=== PATIENT | female | born 1955 | race Caucasian/White ===

== ENCOUNTER 2018-09-15 16:33 | Inpatient (IN) | payer BC ==
[2018-09-15] MEDS ORDERED: Sodium Chloride 0.9% 10 ML Syringe FLUSH PRN (16:44)
[2018-09-15] MEDS ORDERED: Aspirin 81 MG Tab.Chew PO ONE (16:52)
[2018-09-15] MEDS ORDERED: Labetalol 20 MG/4 ML Syringe IVPUSH ONE (16:53)
[2018-09-15] MEDS ORDERED: Nitroglycerin 0.4 MG Tab.SL SL ONE (16:53)
[2018-09-15] MEDS ORDERED: Nitroglycerin 0.4 MG Tab.SL SL PRN (16:54)
--- NOTE | 2018-09-15 17:00 | EDM.PDOC ---
ED HPI GENERAL MEDICAL PROBLEM - General Chief Complaint: Chest Pain Stated Complaint: CHEST PAIN Time Seen by Provider: 09/15/18 16:47 Source of Information: Reports: Patient History Limitations: Reports: No Limitations - History of Present Illness INITIAL COMMENTS - FREE TEXT/NARRATIVE: Presents with substernal non-radiating chest pressure x 1 hour. Took Tums with some improvement. No prior h/o CAD or HTN. No FMHx of CAD. Patient states it feels like her BP is high. She does have a h/o GERD. Onset: Today Onset Date: 09/15/18 Duration: Hour(s): (1) Location: Reports: Chest Quality: Reports: Pressure Severity: Moderate Improves with: Reports: Other (Tums) Associated Symptoms: Denies: Nausea/Vomiting, Shortness of Breath Midsternal chest Pain Score (Numeric/FACES): 0 Right Hand Pain Score (Numeric/FACES): 0 - Related Data Allergies Allergy/AdvReac Type Severity Reaction Status Date / Time honeydew melons Allergy Anaphylactic Uncoded 09/15/18 23:31 Shock Home Meds: Home Meds Esomeprazole Magnesium [Nexium] 40 mg PO DAILY 09/15/18 [History] Ranitidine [Zantac] 150 mg PO BEDTIME 09/15/18 [History] Past Medical History Cardiovascular History: Denies: CAD, Hypertension Gastrointestinal History: Reports: GERD Oncologic (Cancer) History: Reports: Breast - Past Surgical History Female Surgical History: Reports: Mastectomy (25 years ago) Endocrine Surgical History: Reports: Thyroidectomy (Partial) Social & Family History - Tobacco Use Smoking Status *Q: Former Smoker Tobacco Use Within Last Twelve Months: No - Alcohol Use Alcohol Use History: Yes Alcohol Use Frequency: Socially - Recreational Drug Use Recreational Drug Use: No ED ROS GENERAL - Review of Systems Review Of Systems: ROS reveals no pertinent complaints other than HPI. ED EXAM, GENERAL - Physical Exam Exam: See Below Exam Limited By: No Limitations General Appearance: Alert, WD/WN, No Apparent Distress Ears: Normal External Exam Nose: Normal Inspection Throat/Mouth: No Airway Compromise Head: Atraumatic, Normocephalic Neck: Supple Respiratory/Chest: No Respiratory Distress, Lungs Clear, Normal Breath Sounds Cardiovascular: Regular Rate, Rhythm, No Edema, No Murmur GI/Abdominal: Non-Tender, No Distention Back Exam: Full Range of Motion Extremities: Normal Inspection, Normal Range of Motion, Non-Tender, No Pedal Edema Neurological: Alert, Normal Cognition, No Motor/Sensory Deficits Psychiatric: Normal Affect, Normal Mood Skin Exam: Warm, Dry, Intact EKG INTERPRETATION EKG Date: 09/15/18 Time: 16:46 Rhythm: NSR Rate (Beats/Min): 74 [place]: Normal P-Wave: Present QRS: Normal ST-T: Other (no ST elev or dep, T wave flattened in V2 + V3) QT: Normal Course - Vital Signs Last Recorded V/S: Last Vital Signs Temp 36.7 C 09/16/18 04:00 Pulse 70 09/16/18 04:00 Resp 17 09/16/18 04:00 BP 150/68 H 09/16/18 04:00 Pulse Ox 96 09/16/18 04:00 - Orders/Labs/Meds Orders: Active Orders 24 hr Category Date Time Status EKG Documentation Completion [RC] ASDIRECTED Care 09/15/18 16:42 Active EKG Documentation Completion [RC] ASDIRECTED Care 09/15/18 21:00 Active Ang Chest [CT] Stat Exams 09/15/18 18:44 Taken CXR [Chest 1V Frontal] [CR] Stat Exams 09/15/18 16:42 Taken THYROXINE (T4) FREE, DIRECT, S Stat Lab 09/15/18 17:45 Received Nitroglycerin [Nitrostat] Med 09/15/18 16:54 Active 0.4 mg SL Q5M PRN Sodium Chloride 0.9% [Saline Flush] Med 09/15/18 16:44 Active 10 ml FLUSH ASDIRECTED PRN Saline Lock Insert [OM.PC] Routine Oth 09/15/18 16:44 Ordered EKG 12 Lead [EK] Stat Ther 09/15/18 16:42 Ordered EKG 12 Lead [EK] Stat Ther 09/15/18 21:00 Ordered Medication Orders Enoxaparin Sodium (Lovenox) 130 mg SUBCUT Q12H [facility] Last Admin: 09/15/18 23:21 Dose: Not Given Admin: 09/15/18 23:15 Dose: 130 mg Nitroglycerin (Nitrostat) 0.4 mg SL Q5M PRN PRN Reason: Chest Pain Last Admin: 09/15/18 16:45 Dose: 0.4 mg Sodium Chloride (Saline Flush) 10 ml FLUSH ASDIRECTED PRN PRN Reason: Keep Vein Open Last Admin: 09/15/18 16:50 Dose: 10 ml Warfarin Sodium (Coumadin) 10 mg PO DAILY@1600 BOYD Last Admin: 09/15/18 23:54 Dose: Not Given Labs: Laboratory Tests 09/15/18 09/15/18 09/15/18 Range/Units 16:55 16:55 16:55 WBC 7.6 (4.5-12.0) X10-3/uL RBC 4.82 (3.23-5.20) x10(6)uL Hgb 13.8 (11.5-15.5) g/dL Hct 42.8 (30.0-51.3) % MCV 88.8 (80-96) fL MCH 28.7 (27.7-33.6) pg MCHC 32.3 (32.2-35.4) g/dL RDW 12.3 (11.5-15.5) % Plt Count 270 (125-369) X10(3)uL MPV 6.8 L (7.4-10.4) fL Neut % (Auto) 51.3 (46-82) % Lymph % (Auto) 40.9 H (13-37) % [place] % (Auto) 6.0 (4-12) % Eos % (Auto) 1 (1.0-5.0) % Baso % (Auto) 0 (0-2) % Neut # (Auto) 3.9 (1.6-8.3) # Lymph # (Auto) 3.1 (0.6-5.0) # [place] # (Auto) 0.5 (0.0-1.3) # Eos # (Auto) 0.1 (0.0-0.8) # Baso # (Auto) 0.0 (0.0-0.2) # PT 9.4 (8.7-11.1) INR 0.97 (0.89-1.13) APTT (24.4-33.2) SECONDS D-Dimer, Quantitative 2.07 H (0.0-0.59) mg/LFEU Sodium 141 (135-145) mmol/L Potassium 3.6 (3.5-5.3) mmol/L Chloride 103 (100-110) mmol/L Carbon Dioxide 27 (21-32) mmol/L BUN 12 (7-18) mg/dL Creatinine 1.0 (0.55-1.02) mg/dL Est Cr Clr Drug Dosing TNP Estimated GFR (MDRD) 56 L (>60) BUN/Creatinine Ratio 12.0 (9-20) Glucose 100 (80-116) mg/dL Calcium 9.0 (8.6-10.2) mg/dL Magnesium 2.0 (1.8-2.5) mg/dL Total Bilirubin 0.2 (0.1-1.3) mg/dL AST 16 (5-25) IU/L ALT 19 (12-36) U/L Alkaline Phosphatase 87 (56-112) IU/L Troponin I (<0.017-0.056) ng/mL Total Protein 7.3 (6.0-8.0) g/dL Albumin 3.9 (3.2-4.6) g/dL Globulin 3.4 g/dL Albumin/Globulin Ratio 1.2 TSH, Ultra Sensitive (0.36-3.74) IU/mL 09/15/18 09/15/18 09/15/18 Range/Units 16:55 16:55 21:05 WBC (4.5-12.0) X10-3/uL RBC (3.23-5.20) x10(6)uL Hgb (11.5-15.5) g/dL Hct (30.0-51.3) % MCV (80-96) fL MCH (27.7-33.6) pg MCHC (32.2-35.4) g/dL RDW (11.5-15.5) % Plt Count (125-369) X10(3)uL MPV (7.4-10.4) fL Neut % (Auto) (46-82) % Lymph % (Auto) (13-37) % [place] % (Auto) (4-12) % Eos % (Auto) (1.0-5.0) % Baso % (Auto) (0-2) % Neut # (Auto) (1.6-8.3) # Lymph # (Auto) (0.6-5.0) # [place] # (Auto) (0.0-1.3) # Eos # (Auto) (0.0-0.8) # Baso # (Auto) (0.0-0.2) # PT (8.7-11.1) INR (0.89-1.13) APTT 23.4 L (24.4-33.2) SECONDS D-Dimer, Quantitative (0.0-0.59) mg/LFEU Sodium (135-145) mmol/L Potassium (3.5-5.3) mmol/L Chloride (100-110) mmol/L Carbon Dioxide (21-32) mmol/L BUN (7-18) mg/dL Creatinine (0.55-1.02) mg/dL Est Cr Clr Drug Dosing Estimated GFR (MDRD) (>60) BUN/Creatinine Ratio (9-20) Glucose (80-116) mg/dL Calcium (8.6-10.2) mg/dL Magnesium (1.8-2.5) mg/dL Total Bilirubin (0.1-1.3) mg/dL AST (5-25) IU/L ALT (12-36) U/L Alkaline Phosphatase (56-112) IU/L Troponin I < 0.017 L < 0.017 L (<0.017-0.056) ng/mL Total Protein (6.0-8.0) g/dL Albumin (3.2-4.6) g/dL Globulin g/dL Albumin/Globulin Ratio TSH, Ultra Sensitive 3.79 H (0.36-3.74) IU/mL Meds: Medications Generic Name Dose Route Start Last Admin Trade Name Freq PRN Reason Stop Dose Admin Enoxaparin Sodium 130 mg 09/15/18 22:00 09/15/18 23:21 Lovenox SUBCUT Not Given Q12H BOYD Nitroglycerin 0.4 mg 09/15/18 16:54 09/15/18 16:45 Nitrostat SL 0.4 mg Q5M PRN Administration Chest Pain Sodium Chloride 10 ml 09/15/18 16:44 09/15/18 16:50 Saline Flush FLUSH 10 ml ASDIRECTED PRN Administration Keep Vein Open Warfarin Sodium 10 mg 09/15/18 23:00 09/15/18 23:54 Coumadin PO Not Given DAILY@1600 BOYD Discontinued Medications Generic Name Dose Route Start Last Admin Trade Name Freq PRN Reason Stop Dose Admin Aspirin 324 mg 09/15/18 16:52 09/15/18 16:55 Aspirin PO 09/15/18 16:53 324 mg ONETIME ONE Administration Enoxaparin Sodium Confirm 09/15/18 23:11 09/15/18 23:18 Lovenox Administered 09/15/18 23:12 Not Given Dose 100 mg .ROUTE .STK-MED ONE Enoxaparin Sodium Confirm 09/15/18 23:11 09/15/18 23:18 Lovenox Administered 09/15/18 23:12 Not Given Dose 30 mg .ROUTE .STK-MED ONE Iopamidol 100 ml 09/15/18 18:33 09/15/18 18:42 Isovue-370 (76%) IV 09/15/18 18:34 85 ml ONETIME ONE Administration Labetalol HCl 10 mg 09/15/18 16:53 09/15/18 17:28 Normodyne IVPUSH 09/15/18 16:54 10 mg ONETIME ONE Administration Protocol Nitroglycerin 0.4 mg 09/15/18 16:53 Nitrostat SL 09/15/18 16:54 ONETIME ONE Warfarin Sodium Confirm 09/15/18 23:13 09/15/18 23:17 Coumadin Administered 09/15/18 23:14 10 mg Dose Administration 10 mg .ROUTE .STK-MED ONE - Re-Assessments/Exams Free Text/Narrative Re-Assessment/Exam: 09/15/18 18:10 Chest pain resolved after NTG SL x 1. BP 150/89 after Labetalol 10mg IV. 09/15/18 19:00 Patient care transferred to Dr. Manuel pending CTA chest and repeat Trop/EKG @ 2100. Departure - Departure Time of Disposition: 19:00 Disposition: Still A Patient 30 Clinical Impression: Chest pain Qualifiers: Chest pain type: unspecified Qualified Code(s): R07.9 - Chest pain, unspecified - My Orders Last 24 Hours: My Active Orders 09/15/18 16:42 EKG Documentation Completion [RC] ASDIRECTED CXR [Chest 1V Frontal] [CR] Stat EKG 12 Lead [EK] Stat 09/15/18 16:44 Sodium Chloride 0.9% [Saline Flush] 10 ml FLUSH ASDIRECTED PRN Saline Lock Insert [OM.PC] Routine 09/15/18 16:54 Nitroglycerin [Nitrostat] 0.4 mg SL Q5M PRN 09/15/18 17:45 THYROXINE (T4) FREE, DIRECT, S Stat 09/15/18 18:44 Ang Chest [CT] Stat 09/15/18 21:00 EKG Documentation Completion [RC] ASDIRECTED EKG 12 Lead [EK] Stat - Assessment/Plan Last 24 Hours: My Active Orders 09/15/18 16:42 EKG Documentation Completion [RC] ASDIRECTED CXR [Chest 1V Frontal] [CR] Stat EKG 12 Lead [EK] Stat 09/15/18 16:44 Sodium Chloride 0.9% [Saline Flush] 10 ml FLUSH ASDIRECTED PRN Saline Lock Insert [OM.PC] Routine 09/15/18 16:54 Nitroglycerin [Nitrostat] 0.4 mg SL Q5M PRN 09/15/18 17:45 THYROXINE (T4) FREE, DIRECT, S Stat 09/15/18 18:44 Ang Chest [CT] Stat 09/15/18 21:00 EKG Documentation Completion [RC] ASDIRECTED EKG 12 Lead [EK] Stat
[2018-09-15] MEDS ORDERED: Iopamidol 755 Mg/ML 100 ML Bottle IV ONE (18:33)
--- NOTE | 2018-09-15 22:20 | PCM.HP ---
H&P History of Present Illness - General Date of Service: 09/15/18 Admit Problem/Dx: Admission Diagnosis/Problem Admission Diagnosis/Problem Pulmonary embolism Source of Information: Patient History Limitations: Reports: No Limitations - History of Present Illness Initial Comments - Free Text/Narative: 62 yo female with retrosternal chest pain,short duration ,moderate ,with no radiation. Associated with high BP. Previously healthy,but has been on a prolonged travel by road over the last 1 week. No fever. Right Hand Pain Score (Numeric/FACES): 0 Midsternal chest Pain Score (Numeric/FACES): 0 - Related Data Allergies/Adverse Reactions: Allergies Allergy/AdvReac Type Severity Reaction Status Date / Time No Known Allergies Allergy Verified 09/15/18 16:57 Home Medications: Home Meds Esomeprazole Magnesium [Nexium] 40 mg PO DAILY 09/15/18 [History] Ranitidine [Zantac] 150 mg PO BEDTIME 09/15/18 [History] Past Medical History Cardiovascular History: Denies: CAD, Hypertension Gastrointestinal History: Reports: GERD Genitourinary History: Reports: UTI, Recurrent [employer] History: Reports: Other OB/BYN History: Hematologic History: Reports: None Oncologic (Cancer) History: Reports: Breast - Infectious Disease History Infectious Disease History: Reports: Chicken Pox, Measles, MRSA, Other (See Below) Other Infectious Disease History: MRSA on sore on abdomen - Past Surgical History Female Surgical History: Reports: Mastectomy (25 years ago) Endocrine Surgical History: Reports: Thyroidectomy (Partial) Social & Family History - Family History Family Medical History: Noncontributory - Tobacco Use Smoking Status *Q: Former Smoker Years of Tobacco use: 20 Used Tobacco, but Quit: Yes Month/Year Tobacco Last Used: jun - Caffeine Use Caffeine Use: Reports: Coffee - Alcohol Use Days Per Week of Alcohol Use: 3 Number of Drinks Per Day: 2 Total Drinks Per Week: 6 - Recreational Drug Use Recreational Drug Use: No H&P Review of Systems - Review of Systems: Review Of Systems: ROS reveals no pertinent complaints other than HPI. Exam - Exam Exam: See Below - Vital Signs Vital Signs: Last Vital Signs Temp 97.7 F 09/15/18 16:35 Pulse 71 09/15/18 19:00 Resp 16 09/15/18 19:00 BP 147/82 H 09/15/18 19:00 Pulse Ox 100 09/15/18 19:00 Weight: 88.451 kg - Exam General: Alert, Oriented, 4 HEENT: PERRLA, Hearing Intact, Mucosa Moist & [address], Nares Patent, Normal Nasal Septum, Posterior Pharynx Clear, Conjunctiva Clear, EOMI, EACs Clear, TMs Clear Neck: Supple, Trachea Midline, 2 Lungs: Clear to Auscultation, Normal Respiratory Effort Cardiovascular: Regular Rate, Regular Rhythm GI/Abdominal Exam: Normal Bowel Sounds, Soft, Non-Tender, No Organomegaly, No Distention, No Abnormal Bruit, No Mass, Pelvis Stable (Female) Exam: Deferred Rectal (Female) Exam: Deferred Back Exam: Normal Inspection, Full Range of Motion, NT Extremities: Normal Inspection, Normal Range of Motion, Non-Tender, No Pedal Edema, Normal Capillary Refill Skin: Warm, Dry, Intact Neurological: Cranial Nerves Intact, Reflexes Equal Bilateral Neuro Extensive - Mental Status: Alert, Oriented x3, Normal Mood/Affect, Normal Cognition Neuro Extensive - Motor, Sensory, Reflexes: CN II-XII Intact, Normal Gait, Normal Reflexes Psychiatric: Alert, Normal Affect, Normal Mood - Patient Data Lab Results Last 24 hrs: Laboratory Results - last 24 hr 09/15/18 09/15/18 09/15/18 Range/Units 16:55 16:55 16:55 WBC 7.6 (4.5-12.0) X10-3/uL RBC 4.82 (3.23-5.20) x10(6)uL Hgb 13.8 (11.5-15.5) g/dL Hct 42.8 (30.0-51.3) % MCV 88.8 (80-96) fL MCH 28.7 (27.7-33.6) pg MCHC 32.3 (32.2-35.4) g/dL RDW 12.3 (11.5-15.5) % Plt Count 270 (125-369) X10(3)uL MPV 6.8 L (7.4-10.4) fL Neut % (Auto) 51.3 (46-82) % Lymph % (Auto) 40.9 H (13-37) % [place] % (Auto) 6.0 (4-12) % Eos % (Auto) 1 (1.0-5.0) % Baso % (Auto) 0 (0-2) % Neut # (Auto) 3.9 (1.6-8.3) # Lymph # (Auto) 3.1 (0.6-5.0) # [place] # (Auto) 0.5 (0.0-1.3) # Eos # (Auto) 0.1 (0.0-0.8) # Baso # (Auto) 0.0 (0.0-0.2) # PT 9.4 (8.7-11.1) INR 0.97 (0.89-1.13) APTT (24.4-33.2) SECONDS D-Dimer, Quantitative 2.07 H (0.0-0.59) mg/LFEU Sodium 141 (135-145) mmol/L Potassium 3.6 (3.5-5.3) mmol/L Chloride 103 (100-110) mmol/L Carbon Dioxide 27 (21-32) mmol/L BUN 12 (7-18) mg/dL Creatinine 1.0 (0.55-1.02) mg/dL Est Cr Clr Drug Dosing TNP Estimated GFR (MDRD) 56 L (>60) BUN/Creatinine Ratio 12.0 (9-20) Glucose 100 (80-116) mg/dL Calcium 9.0 (8.6-10.2) mg/dL Magnesium 2.0 (1.8-2.5) mg/dL Total Bilirubin 0.2 (0.1-1.3) mg/dL AST 16 (5-25) IU/L ALT 19 (12-36) U/L Alkaline Phosphatase 87 (56-112) IU/L Troponin I (<0.017-0.056) ng/mL Total Protein 7.3 (6.0-8.0) g/dL Albumin 3.9 (3.2-4.6) g/dL Globulin 3.4 g/dL Albumin/Globulin Ratio 1.2 TSH, Ultra Sensitive (0.36-3.74) IU/mL 09/15/18 09/15/18 09/15/18 Range/Units 16:55 16:55 21:05 WBC (4.5-12.0) X10-3/uL RBC (3.23-5.20) x10(6)uL Hgb (11.5-15.5) g/dL Hct (30.0-51.3) % MCV (80-96) fL MCH (27.7-33.6) pg MCHC (32.2-35.4) g/dL RDW (11.5-15.5) % Plt Count (125-369) X10(3)uL MPV (7.4-10.4) fL Neut % (Auto) (46-82) % Lymph % (Auto) (13-37) % [place] % (Auto) (4-12) % Eos % (Auto) (1.0-5.0) % Baso % (Auto) (0-2) % Neut # (Auto) (1.6-8.3) # Lymph # (Auto) (0.6-5.0) # [place] # (Auto) (0.0-1.3) # Eos # (Auto) (0.0-0.8) # Baso # (Auto) (0.0-0.2) # PT (8.7-11.1) INR (0.89-1.13) APTT 23.4 L (24.4-33.2) SECONDS D-Dimer, Quantitative (0.0-0.59) mg/LFEU Sodium (135-145) mmol/L Potassium (3.5-5.3) mmol/L Chloride (100-110) mmol/L Carbon Dioxide (21-32) mmol/L BUN (7-18) mg/dL Creatinine (0.55-1.02) mg/dL Est Cr Clr Drug Dosing Estimated GFR (MDRD) (>60) BUN/Creatinine Ratio (9-20) Glucose (80-116) mg/dL Calcium (8.6-10.2) mg/dL Magnesium (1.8-2.5) mg/dL Total Bilirubin (0.1-1.3) mg/dL AST (5-25) IU/L ALT (12-36) U/L Alkaline Phosphatase (56-112) IU/L Troponin I < 0.017 L < 0.017 L (<0.017-0.056) ng/mL Total Protein (6.0-8.0) g/dL Albumin (3.2-4.6) g/dL Globulin g/dL Albumin/Globulin Ratio TSH, Ultra Sensitive 3.79 H (0.36-3.74) IU/mL Result Diagrams: 09/15/18 16:55 09/15/18 16:55 - Problem List (1) Pulmonary emboli SNOMED Code(s): 35581984 ICD Code: I26.99 - OTHER PULMONARY EMBOLISM WITHOUT ACUTE COR PULMONALE Status: Acute Current Visit: Yes Qualifiers: Pulmonary embolism type: unspecified Chronicity: acute Acute cor pulmonale presence: without acute cor pulmonale Qualified Code(s): I26.99 - Other pulmonary embolism without acute cor pulmonale (2) GERD (gastroesophageal reflux disease) SNOMED Code(s): 496824359 ICD Code: K21.9 - GASTRO-ESOPHAGEAL REFLUX DISEASE WITHOUT ESOPHAGITIS Status: Acute Current Visit: Yes Qualifiers: Esophagitis presence: without esophagitis Qualified Code(s): K21.9 - Gastro -esophageal reflux disease without esophagitis Problem List Initiated/Reviewed/Updated: Yes Orders Last 24hrs: Active Orders 24 hr Category Date Time Status Patient Status Manage Transfer [TRANSFER] Routine ADT 09/15/18 22:08 Active Patient Status [ADT] Routine ADT 09/15/18 21:58 Active Cardiac Monitoring [RC] CONTINUOUS Care 09/15/18 22:06 Active EKG Documentation Completion [RC] ASDIRECTED Care 09/15/18 16:42 Active EKG Documentation Completion [RC] ASDIRECTED Care 09/15/18 21:00 Active Oxygen Therapy [RC] PRN Care 09/15/18 21:58 Active Up ad [place] [RC] ASDIRECTED Care 09/15/18 21:58 Active VTE/DVT Education [RC] Per Unit Routine Care 09/15/18 21:58 Active Vital Signs [RC] Q4H Care 09/15/18 21:58 Active Regular Diet [DIET] Diet 09/15/18 Breakfast Ordered Ang Chest [CT] Stat Exams 09/15/18 18:44 Taken CXR [Chest 1V Frontal] [CR] Stat Exams 09/15/18 16:42 Taken CBC WITH AUTO DIFF [HEME] AM Lab 09/16/18 05:11 Ordered COMPREHENSIVE METABOLIC PN,CMP [CHEM] AM Lab 09/16/18 05:11 Ordered INR,PT,PROTHROMBIN TIME [COAG] DAILY Lab 09/16/18 22:00 Ordered INR,PT,PROTHROMBIN TIME [COAG] DAILY Lab 09/17/18 22:00 Ordered THYROXINE (T4) FREE, DIRECT, S Stat Lab 09/15/18 17:45 Received TROPONIN I [CHEM] AM Lab 09/16/18 05:11 Ordered Enoxaparin [Lovenox] Med 09/15/18 22:00 Active 130 mg SUBCUT Q12H Nitroglycerin [Nitrostat] Med 09/15/18 16:54 Active 0.4 mg SL Q5M PRN Sodium Chloride 0.9% [Saline Flush] Med 09/15/18 16:44 Active 10 ml FLUSH ASDIRECTED PRN Saline Lock Insert [OM.PC] Routine Oth 09/15/18 16:44 Ordered Resuscitation Status Routine Resus Stat 09/15/18 21:58 Ordered EKG 12 Lead [EK] Stat Ther 09/15/18 16:42 Ordered EKG 12 Lead [EK] Stat Ther 09/15/18 21:00 Ordered Medication Orders Enoxaparin Sodium (Lovenox) 130 mg SUBCUT Q12H BOYD Nitroglycerin (Nitrostat) 0.4 mg SL Q5M PRN PRN Reason: Chest Pain Last Admin: 09/15/18 16:45 Dose: 0.4 mg Sodium Chloride (Saline Flush) 10 ml FLUSH ASDIRECTED PRN PRN Reason: Keep Vein Open Last Admin: 09/15/18 16:50 Dose: 10 ml Assessment/Plan Comment:: Admit for heparin and Monitoring. I chose Lovenox.
[2018-09-15] MEDS ORDERED: Enoxaparin 30 MG/0.3 ML Syringe ONE (23:11)
[2018-09-15] MEDS ORDERED: Enoxaparin 100 MG/1 ML Syringe ONE (23:11)
[2018-09-15] MEDS ORDERED: Warfarin 5 MG Tab ONE (23:13)
[2018-09-15] MEDS: Enoxaparin 120 MG/0.8 ML Syringe SUBCUT SCH ×2 (23:15→23:21)
[2018-09-15] MEDS: Warfarin 10 MG Tab PO SCH (23:54)
--- NOTE | 2018-09-16 07:49 | PCM.PN ---
- General Info Date of Service: 09/16/18 Subjective Update: No chest pain,or leg swelling - Review of Systems HEENT: Reports: No Symptoms Pulmonary: Reports: No Symptoms Cardiovascular: Reports: No Symptoms Gastrointestinal: Reports: No Symptoms - Patient Data Vitals - Most Recent: Last Vital Signs Temp 98.0 F 09/16/18 04:00 Pulse 70 09/16/18 04:00 Resp 17 09/16/18 04:00 BP 150/68 H 09/16/18 04:00 Pulse Ox 96 09/16/18 04:00 Weight - Most Recent: 91.58 kg Lab Results Last 24 Hours: Laboratory Results - last 24 hr 09/15/18 09/15/18 09/15/18 Range/Units 16:55 16:55 16:55 WBC 7.6 (4.5-12.0) X10-3/uL RBC 4.82 (3.23-5.20) x10(6)uL Hgb 13.8 (11.5-15.5) g/dL Hct 42.8 (30.0-51.3) % MCV 88.8 (80-96) fL MCH 28.7 (27.7-33.6) pg MCHC 32.3 (32.2-35.4) g/dL RDW 12.3 (11.5-15.5) % Plt Count 270 (125-369) X10(3)uL MPV 6.8 L (7.4-10.4) fL Neut % (Auto) 51.3 (46-82) % Lymph % (Auto) 40.9 H (13-37) % [place] % (Auto) 6.0 (4-12) % Eos % (Auto) 1 (1.0-5.0) % Baso % (Auto) 0 (0-2) % Neut # (Auto) 3.9 (1.6-8.3) # Lymph # (Auto) 3.1 (0.6-5.0) # [place] # (Auto) 0.5 (0.0-1.3) # Eos # (Auto) 0.1 (0.0-0.8) # Baso # (Auto) 0.0 (0.0-0.2) # PT 9.4 (8.7-11.1) INR 0.97 (0.89-1.13) APTT (24.4-33.2) SECONDS D-Dimer, Quantitative 2.07 H (0.0-0.59) mg/LFEU Sodium 141 (135-145) mmol/L Potassium 3.6 (3.5-5.3) mmol/L Chloride 103 (100-110) mmol/L Carbon Dioxide 27 (21-32) mmol/L BUN 12 (7-18) mg/dL Creatinine 1.0 (0.55-1.02) mg/dL Est Cr Clr Drug Dosing TNP Estimated GFR (MDRD) 56 L (>60) BUN/Creatinine Ratio 12.0 (9-20) Glucose 100 (80-116) mg/dL Calcium 9.0 (8.6-10.2) mg/dL Magnesium 2.0 (1.8-2.5) mg/dL Total Bilirubin 0.2 (0.1-1.3) mg/dL AST 16 (5-25) IU/L ALT 19 (12-36) U/L Alkaline Phosphatase 87 (56-112) IU/L Troponin I (<0.017-0.056) ng/mL Total Protein 7.3 (6.0-8.0) g/dL Albumin 3.9 (3.2-4.6) g/dL Globulin 3.4 g/dL Albumin/Globulin Ratio 1.2 TSH, Ultra Sensitive (0.36-3.74) IU/mL 09/15/18 09/15/18 09/15/18 Range/Units 16:55 16:55 21:05 WBC (4.5-12.0) X10-3/uL RBC (3.23-5.20) x10(6)uL Hgb (11.5-15.5) g/dL Hct (30.0-51.3) % MCV (80-96) fL MCH (27.7-33.6) pg MCHC (32.2-35.4) g/dL RDW (11.5-15.5) % Plt Count (125-369) X10(3)uL MPV (7.4-10.4) fL Neut % (Auto) (46-82) % Lymph % (Auto) (13-37) % [place] % (Auto) (4-12) % Eos % (Auto) (1.0-5.0) % Baso % (Auto) (0-2) % Neut # (Auto) (1.6-8.3) # Lymph # (Auto) (0.6-5.0) # [place] # (Auto) (0.0-1.3) # Eos # (Auto) (0.0-0.8) # Baso # (Auto) (0.0-0.2) # PT (8.7-11.1) INR (0.89-1.13) APTT 23.4 L (24.4-33.2) SECONDS D-Dimer, Quantitative (0.0-0.59) mg/LFEU Sodium (135-145) mmol/L Potassium (3.5-5.3) mmol/L Chloride (100-110) mmol/L Carbon Dioxide (21-32) mmol/L BUN (7-18) mg/dL Creatinine (0.55-1.02) mg/dL Est Cr Clr Drug Dosing Estimated GFR (MDRD) (>60) BUN/Creatinine Ratio (9-20) Glucose (80-116) mg/dL Calcium (8.6-10.2) mg/dL Magnesium (1.8-2.5) mg/dL Total Bilirubin (0.1-1.3) mg/dL AST (5-25) IU/L ALT (12-36) U/L Alkaline Phosphatase (56-112) IU/L Troponin I < 0.017 L < 0.017 L (<0.017-0.056) ng/mL Total Protein (6.0-8.0) g/dL Albumin (3.2-4.6) g/dL Globulin g/dL Albumin/Globulin Ratio TSH, Ultra Sensitive 3.79 H (0.36-3.74) IU/mL 09/16/18 09/16/18 09/16/18 Range/Units 06:10 06:10 06:10 WBC 7.0 (4.5-12.0) X10-3/uL RBC 4.53 (3.23-5.20) x10(6)uL Hgb 13.5 (11.5-15.5) g/dL Hct 40.2 (30.0-51.3) % MCV 88.6 (80-96) fL MCH 29.7 (27.7-33.6) pg MCHC 33.5 (32.2-35.4) g/dL RDW 12.8 (11.5-15.5) % Plt Count 256 (125-369) X10(3)uL MPV 6.9 L (7.4-10.4) fL Neut % (Auto) 46.6 (46-82) % Lymph % (Auto) 46.0 H (13-37) % [place] % (Auto) 5.2 (4-12) % Eos % (Auto) 2 (1.0-5.0) % Baso % (Auto) 1 (0-2) % Neut # (Auto) 3.3 (1.6-8.3) # Lymph # (Auto) 3.2 (0.6-5.0) # [place] # (Auto) 0.4 (0.0-1.3) # Eos # (Auto) 0.1 (0.0-0.8) # Baso # (Auto) 0.0 (0.0-0.2) # PT (8.7-11.1) INR (0.89-1.13) APTT (24.4-33.2) SECONDS D-Dimer, Quantitative (0.0-0.59) mg/LFEU Sodium 142 (135-145) mmol/L Potassium 4.1 (3.5-5.3) mmol/L Chloride 106 (100-110) mmol/L Carbon Dioxide 29 (21-32) mmol/L BUN 11 (7-18) mg/dL Creatinine 1.0 (0.55-1.02) mg/dL Est Cr Clr Drug Dosing 60.96 Estimated GFR (MDRD) 56 L (>60) BUN/Creatinine Ratio 11.0 (9-20) Glucose 94 (80-116) mg/dL Calcium 8.7 (8.6-10.2) mg/dL Magnesium (1.8-2.5) mg/dL Total Bilirubin 0.3 (0.1-1.3) mg/dL AST 19 D (5-25) IU/L ALT 18 (12-36) U/L Alkaline Phosphatase 80 (56-112) IU/L Troponin I < 0.017 L (<0.017-0.056) ng/mL Total Protein 6.7 (6.0-8.0) g/dL Albumin 3.5 (3.2-4.6) g/dL Globulin 3.2 g/dL Albumin/Globulin Ratio 1.1 TSH, Ultra Sensitive (0.36-3.74) IU/mL 09/16/18 Range/Units 06:10 WBC (4.5-12.0) X10-3/uL RBC (3.23-5.20) x10(6)uL Hgb (11.5-15.5) g/dL Hct (30.0-51.3) % MCV (80-96) fL MCH (27.7-33.6) pg MCHC (32.2-35.4) g/dL RDW (11.5-15.5) % Plt Count (125-369) X10(3)uL MPV (7.4-10.4) fL Neut % (Auto) (46-82) % Lymph % (Auto) (13-37) % [place] % (Auto) (4-12) % Eos % (Auto) (1.0-5.0) % Baso % (Auto) (0-2) % Neut # (Auto) (1.6-8.3) # Lymph # (Auto) (0.6-5.0) # [place] # (Auto) (0.0-1.3) # Eos # (Auto) (0.0-0.8) # Baso # (Auto) (0.0-0.2) # PT 10.0 (8.7-11.1) INR 1.03 (0.89-1.13) APTT (24.4-33.2) SECONDS D-Dimer, Quantitative (0.0-0.59) mg/LFEU Sodium (135-145) mmol/L Potassium (3.5-5.3) mmol/L Chloride (100-110) mmol/L Carbon Dioxide (21-32) mmol/L BUN (7-18) mg/dL Creatinine (0.55-1.02) mg/dL Est Cr Clr Drug Dosing Estimated GFR (MDRD) (>60) BUN/Creatinine Ratio (9-20) Glucose (80-116) mg/dL Calcium (8.6-10.2) mg/dL Magnesium (1.8-2.5) mg/dL Total Bilirubin (0.1-1.3) mg/dL AST (5-25) IU/L ALT (12-36) U/L Alkaline Phosphatase (56-112) IU/L Troponin I (<0.017-0.056) ng/mL Total Protein (6.0-8.0) g/dL Albumin (3.2-4.6) g/dL Globulin g/dL Albumin/Globulin Ratio TSH, Ultra Sensitive (0.36-3.74) IU/mL Med Orders - Current: Current Medications Enoxaparin Sodium (Lovenox) 130 mg SUBCUT Q12H [facility] Last Admin: 09/15/18 23:21 Dose: Not Given Nitroglycerin (Nitrostat) 0.4 mg SL Q5M PRN PRN Reason: Chest Pain Last Admin: 09/15/18 16:45 Dose: 0.4 mg Sodium Chloride (Saline Flush) 10 ml FLUSH ASDIRECTED PRN PRN Reason: Keep Vein Open Last Admin: 09/15/18 16:50 Dose: 10 ml Warfarin Sodium (Coumadin) 10 mg PO DAILY@1600 [facility] Last Admin: 09/15/18 23:54 Dose: Not Given Discontinued Medications Aspirin (Aspirin) 324 mg PO ONETIME ONE Stop: 09/15/18 16:53 Last Admin: 09/15/18 16:55 Dose: 324 mg Enoxaparin Sodium (Lovenox) Confirm Administered Dose 100 mg .ROUTE .STK-MED ONE Stop: 09/15/18 23:12 Last Admin: 09/15/18 23:18 Dose: Not Given Enoxaparin Sodium (Lovenox) Confirm Administered Dose 30 mg .ROUTE .STK-MED ONE Stop: 09/15/18 23:12 Last Admin: 09/15/18 23:18 Dose: Not Given Iopamidol (Isovue-370 (76%)) 100 ml IV ONETIME ONE Stop: 09/15/18 18:34 Last Admin: 09/15/18 18:42 Dose: 85 ml Labetalol HCl (Normodyne) 10 mg IVPUSH ONETIME ONE; Protocol Stop: 09/15/18 16:54 Last Admin: 09/15/18 17:28 Dose: 10 mg Nitroglycerin (Nitrostat) 0.4 mg SL ONETIME ONE Stop: 09/15/18 16:54 Warfarin Sodium (Coumadin) Confirm Administered Dose 10 mg .ROUTE .STK-MED ONE Stop: 09/15/18 23:14 Last Admin: 09/15/18 23:17 Dose: 10 mg - Exam General: Alert, Oriented HEENT: Pupils Equal Neck: Supple Lungs: Clear to Auscultation Cardiovascular: Regular Rate Extremities: No: Pedal Edema, Hiren's Sign, Leg Pain - Problem List & Annotations (1) Pulmonary emboli SNOMED Code(s): 01224412 Code(s): I26.99 - OTHER PULMONARY EMBOLISM WITHOUT ACUTE COR PULMONALE Status: Acute Current Visit: Yes Qualifiers: Pulmonary embolism type: unspecified Chronicity: acute Acute cor pulmonale presence: without acute cor pulmonale Qualified Code(s): I26.99 - Other pulmonary embolism without acute cor pulmonale (2) GERD (gastroesophageal reflux disease) SNOMED Code(s): 915128170 Code(s): K21.9 - GASTRO-ESOPHAGEAL REFLUX DISEASE WITHOUT ESOPHAGITIS Status: Acute Current Visit: Yes Qualifiers: Esophagitis presence: without esophagitis Qualified Code(s): K21.9 - Gastro -esophageal reflux disease without esophagitis - Problem List Review Problem List Initiated/Reviewed/Updated: Yes - My Orders Last 24 Hours: My Active Orders 09/15/18 21:58 Patient Status [ADT] Routine Oxygen Therapy [RC] PRN Up ad [place] [RC] ASDIRECTED VTE/DVT Education [RC] Per Unit Routine Vital Signs [RC] Q4H Resuscitation Status Routine 09/15/18 22:00 Enoxaparin [Lovenox] 130 mg SUBCUT Q12H 09/15/18 22:06 Cardiac Monitoring [RC] CONTINUOUS 09/15/18 23:00 Warfarin [Coumadin] 10 mg PO DAILY@1600 09/17/18 22:00 INR,PT,PROTHROMBIN TIME [COAG] DAILY - Plan Plan:: Continue LMWH.I did talk with patient about self injection,but she is not willing -will probably weight till INR is therapeutic before discharge.
[2018-09-16] MEDS ORDERED: Enoxaparin 30 MG/0.3 ML Syringe ONE (09:45)
[2018-09-16] MEDS ORDERED: Enoxaparin 100 MG/1 ML Syringe ONE (09:45)
[2018-09-16] MEDS: Enoxaparin 120 MG/0.8 ML Syringe SUBCUT SCH ×2 (10:15→22:09)
[2018-09-16] MEDS ORDERED: Warfarin 5 MG Tab ONE (15:57)
[2018-09-16] MEDS ORDERED: Warfarin 10 MG Tab PO SCH (16:00)
[2018-09-16] MEDS: Warfarin 10 MG Tab PO SCH (19:04)
--- NOTE | 2018-09-17 08:51 | PCM.PN ---
- General Info Date of Service: 09/17/18 Subjective Update: No chest pain,or leg swelling Functional Status: Reports: Pain Controlled - Review of Systems General: Reports: No Symptoms HEENT: Reports: No Symptoms Pulmonary: Reports: No Symptoms Cardiovascular: Reports: No Symptoms - Patient Data Vitals - Most Recent: Last Vital Signs Temp 97.8 F 09/17/18 04:34 Pulse 70 09/16/18 04:00 Resp 18 09/17/18 04:34 BP 121/78 09/17/18 04:34 Pulse Ox 97 09/17/18 04:34 Weight - Most Recent: 91.58 kg Lab Results Last 24 Hours: Laboratory Results - last 24 hr 09/17/18 Range/Units 06:30 PT 16.4 H (8.7-11.1) INR 1.70 H (0.89-1.13) Med Orders - Current: Current Medications Enoxaparin Sodium (Lovenox) 130 mg SUBCUT Q12H [facility] Last Admin: 09/16/18 22:09 Dose: 130 mg Nitroglycerin (Nitrostat) 0.4 mg SL Q5M PRN PRN Reason: Chest Pain Last Admin: 09/15/18 16:45 Dose: 0.4 mg Sodium Chloride (Saline Flush) 10 ml FLUSH ASDIRECTED PRN PRN Reason: Keep Vein Open Last Admin: 09/15/18 16:50 Dose: 10 ml Warfarin Sodium (Coumadin) 5 mg PO DAILY@1600 [facility] Discontinued Medications Aspirin (Aspirin) 324 mg PO ONETIME ONE Stop: 09/15/18 16:53 Last Admin: 09/15/18 16:55 Dose: 324 mg Enoxaparin Sodium (Lovenox) Confirm Administered Dose 100 mg .ROUTE .STK-MED ONE Stop: 09/15/18 23:12 Last Admin: 09/15/18 23:18 Dose: Not Given Enoxaparin Sodium (Lovenox) Confirm Administered Dose 30 mg .ROUTE .STK-MED ONE Stop: 09/15/18 23:12 Last Admin: 09/15/18 23:18 Dose: Not Given Enoxaparin Sodium (Lovenox) Confirm Administered Dose 100 mg .ROUTE .STK-MED ONE Stop: 09/16/18 09:46 Last Admin: 09/16/18 10:15 Dose: Not Given Enoxaparin Sodium (Lovenox) Confirm Administered Dose 30 mg .ROUTE .STK-MED ONE Stop: 09/16/18 09:46 Last Admin: 09/16/18 10:15 Dose: Not Given Iopamidol (Isovue-370 (76%)) 100 ml IV ONETIME ONE Stop: 09/15/18 18:34 Last Admin: 09/15/18 18:42 Dose: 85 ml Labetalol HCl (Normodyne) 10 mg IVPUSH ONETIME ONE; Protocol Stop: 09/15/18 16:54 Last Admin: 09/15/18 17:28 Dose: 10 mg Nitroglycerin (Nitrostat) 0.4 mg SL ONETIME ONE Stop: 09/15/18 16:54 Warfarin Sodium (Coumadin) 10 mg PO DAILY@1600 [facility] Last Admin: 09/16/18 19:04 Dose: Not Given Warfarin Sodium (Coumadin) Confirm Administered Dose 10 mg .ROUTE .STK-MED ONE Stop: 09/15/18 23:14 Last Admin: 09/15/18 23:17 Dose: 10 mg Warfarin Sodium (Coumadin) Confirm Administered Dose 10 mg .ROUTE .STK-MED ONE Stop: 09/16/18 15:58 Last Admin: 09/16/18 16:22 Dose: Not Given Warfarin Sodium (Coumadin) 10 mg PO DAILY@1600 [facility] Last Admin: 09/16/18 16:21 Dose: 10 mg - Exam General: Alert, Oriented HEENT: Pupils Equal Neck: Supple Lungs: Clear to Auscultation Cardiovascular: Regular Rate - Problem List & Annotations (1) Pulmonary emboli SNOMED Code(s): 57360997 Code(s): I26.99 - OTHER PULMONARY EMBOLISM WITHOUT ACUTE COR PULMONALE Status: Acute Current Visit: Yes Qualifiers: Pulmonary embolism type: unspecified Chronicity: acute Acute cor pulmonale presence: without acute cor pulmonale Qualified Code(s): I26.99 - Other pulmonary embolism without acute cor pulmonale (2) GERD (gastroesophageal reflux disease) SNOMED Code(s): 999772458 Code(s): K21.9 - GASTRO-ESOPHAGEAL REFLUX DISEASE WITHOUT ESOPHAGITIS Status: Acute Current Visit: Yes Qualifiers: Esophagitis presence: without esophagitis Qualified Code(s): K21.9 - Gastro -esophageal reflux disease without esophagitis - Problem List Review Problem List Initiated/Reviewed/Updated: Yes - My Orders Last 24 Hours: My Active Orders 09/17/18 16:00 Warfarin [Coumadin] 5 mg PO DAILY@1600 - Plan Plan:: Continue LMWH.Pharmacy to dose it ,and Coumadin.Anticipate Discharge tomorrow
[2018-09-17] MEDS ORDERED: Warfarin Sliding Scale PO SCH (09:00)
--- NOTE | 2018-09-17 12:16 | CR ---
INDICATION: Chest pain. CHEST: A single AP view of the chest was obtained 09/15/18 - no comparisons. Overlying EKG leads are noted. The aorta is somewhat tortuous with minimal calcification in the arch. The heart did not appear enlarged. Minimal dextroconvex scoliosis of the lower middle thoracic spine is noted. Somewhat heavy markings are noted, likely fibrotic in nature. A definite active infiltrate or effusion was not identified. Certainly no consolidating pneumonia was seen. Bilateral breast implants are noted. Evidence of exogenous obesity is noted. IMPRESSION: No acute process - findings as noted above. MTDD
[2018-09-17] MEDS ORDERED: Warfarin 5 MG Tab PO SCH (16:00)
[2018-09-17] MEDS ORDERED: Famotidine 20 MG Tab PO SCH (21:00)
[2018-09-17] MEDS ORDERED: Enoxaparin 100 MG/1 ML Syringe SUBCUT SCH (22:00)
[2018-09-17] MEDS ORDERED: Enoxaparin 30 MG/0.3 ML Syringe SUBCUT SCH (22:00)
[2018-09-18] MEDS ORDERED: Pantoprazole 40 MG Tab.CR PO SCH (06:00)
--- NOTE | 2018-09-18 08:53 | PCM.PN ---
- General Info Date of Service: 09/18/18 Subjective Update: No chest pain,or leg swelling Functional Status: Reports: Pain Controlled - Review of Systems General: Reports: No Symptoms HEENT: Reports: No Symptoms Pulmonary: Reports: No Symptoms - Patient Data Vitals - Most Recent: Last Vital Signs Temp 97.8 F 09/18/18 03:15 Pulse 76 09/18/18 03:15 Resp 16 09/18/18 03:15 BP 122/75 09/18/18 03:15 Pulse Ox 94 L 09/18/18 03:15 Weight - Most Recent: 91.58 kg Lab Results Last 24 Hours: Laboratory Results - last 24 hr 09/15/18 09/18/18 Range/Units 17:45 06:50 PT 28.5 H (8.7-11.1) INR 2.97 H (0.89-1.13) Free T4 Direct 0.98 (0.82-1.77) ng/dL Med Orders - Current: Current Medications Enoxaparin Sodium (Lovenox) 100 mg SUBCUT Q24H [facility] Last Admin: 09/17/18 21:11 Dose: 100 mg Enoxaparin Sodium (Lovenox) 30 mg SUBCUT Q24H [facility] Last Admin: 09/17/18 21:11 Dose: 30 mg Famotidine (Pepcid) 20 mg PO BEDTIME [facility] Last Admin: 09/17/18 21:11 Dose: 20 mg Nitroglycerin (Nitrostat) 0.4 mg SL Q5M PRN PRN Reason: Chest Pain Last Admin: 09/15/18 16:45 Dose: 0.4 mg Pantoprazole Sodium (Protonix) 40 mg PO DAILY@0600 [facility] Last Admin: 09/18/18 06:23 Dose: 40 mg Sodium Chloride (Saline Flush) 10 ml FLUSH ASDIRECTED PRN PRN Reason: Keep Vein Open Last Admin: 09/15/18 16:50 Dose: 10 ml Warfarin Sodium (Coumadin) 5 mg PO DAILY@1600 [facility] Last Admin: 09/17/18 16:02 Dose: 5 mg Warfarin Sodium (Coumadin Sliding Scale) 1 each PO ASDIRECTED [facility] Discontinued Medications Aspirin (Aspirin) 324 mg PO ONETIME ONE Stop: 09/15/18 16:53 Last Admin: 09/15/18 16:55 Dose: 324 mg Enoxaparin Sodium (Lovenox) 130 mg SUBCUT Q12H [facility] Last Admin: 09/16/18 22:09 Dose: 130 mg Enoxaparin Sodium (Lovenox) Confirm Administered Dose 100 mg .ROUTE .STK-MED ONE Stop: 09/15/18 23:12 Last Admin: 09/15/18 23:18 Dose: Not Given Enoxaparin Sodium (Lovenox) Confirm Administered Dose 30 mg .ROUTE .STK-MED ONE Stop: 09/15/18 23:12 Last Admin: 09/15/18 23:18 Dose: Not Given Enoxaparin Sodium (Lovenox) Confirm Administered Dose 100 mg .ROUTE .STK-MED ONE Stop: 09/16/18 09:46 Last Admin: 09/16/18 10:15 Dose: Not Given Enoxaparin Sodium (Lovenox) Confirm Administered Dose 30 mg .ROUTE .STK-MED ONE Stop: 09/16/18 09:46 Last Admin: 09/16/18 10:15 Dose: Not Given Iopamidol (Isovue-370 (76%)) 100 ml IV ONETIME ONE Stop: 09/15/18 18:34 Last Admin: 09/15/18 18:42 Dose: 85 ml Labetalol HCl (Normodyne) 10 mg IVPUSH ONETIME ONE; Protocol Stop: 09/15/18 16:54 Last Admin: 09/15/18 17:28 Dose: 10 mg Nitroglycerin (Nitrostat) 0.4 mg SL ONETIME ONE Stop: 09/15/18 16:54 Warfarin Sodium (Coumadin) 10 mg PO DAILY@1600 [facility] Last Admin: 09/16/18 19:04 Dose: Not Given Warfarin Sodium (Coumadin) Confirm Administered Dose 10 mg .ROUTE .STK-MED ONE Stop: 09/15/18 23:14 Last Admin: 09/15/18 23:17 Dose: 10 mg Warfarin Sodium (Coumadin) Confirm Administered Dose 10 mg .ROUTE .STK-MED ONE Stop: 09/16/18 15:58 Last Admin: 09/16/18 16:22 Dose: Not Given Warfarin Sodium (Coumadin) 10 mg PO DAILY@1600 [facility] Last Admin: 09/16/18 16:21 Dose: 10 mg - Exam General: Alert HEENT: Pupils Equal Neck: Supple - Problem List & Annotations (1) Pulmonary emboli SNOMED Code(s): 07710182 Code(s): I26.99 - OTHER PULMONARY EMBOLISM WITHOUT ACUTE COR PULMONALE Status: Acute Current Visit: Yes Qualifiers: Pulmonary embolism type: unspecified Chronicity: acute Acute cor pulmonale presence: without acute cor pulmonale Qualified Code(s): I26.99 - Other pulmonary embolism without acute cor pulmonale (2) GERD (gastroesophageal reflux disease) SNOMED Code(s): 551173767 Code(s): K21.9 - GASTRO-ESOPHAGEAL REFLUX DISEASE WITHOUT ESOPHAGITIS Status: Acute Current Visit: Yes Qualifiers: Esophagitis presence: without esophagitis Qualified Code(s): K21.9 - Gastro -esophageal reflux disease without esophagitis - Problem List Review Problem List Initiated/Reviewed/Updated: Yes - My Orders Last 24 Hours: My Active Orders 09/17/18 09:00 Warfarin Sliding Scale [Coumadin Sliding Scale] 1 each PO ASDIRECTED 09/17/18 16:00 Warfarin [Coumadin] 5 mg PO DAILY@1600 09/17/18 21:00 Famotidine [Pepcid] 20 mg PO BEDTIME 09/17/18 22:00 Enoxaparin [Lovenox] 100 mg SUBCUT Q24H Enoxaparin [Lovenox] 30 mg SUBCUT Q24H 09/18/18 06:00 Pantoprazole [ProTONIX] 40 mg PO DAILY@0600 09/19/18 08:54 INR,PT,PROTHROMBIN TIME [COAG] DAILY 09/20/18 08:54 INR,PT,PROTHROMBIN TIME [COAG] DAILY - Plan Plan:: [place] home today
--- NOTE | 2018-09-18 11:48 | DISCH ---
DISCHARGE DATE: 09/18/2018 REASON FOR ADMISSION: Pulmonary embolism. DISCHARGE DIAGNOSIS: Pulmonary embolism. SECONDARY DIAGNOSIS: Gastroesophageal reflux disease. BRIEF HISTORY: This is a 62-year-old female, who had been traveling for more than a week, presented to the ER with some retrosternal chest pain. After the D- dimer was found to be high, a CT revealed a small pulmonary emboli, bilateral. She was placed on low-molecular weight heparin and Coumadin. INR today is 2.7, and she is ready to go home. DISCHARGE MEDICATIONS: 2.5 mg of Coumadin daily. DISCHARGE INSTRUCTIONS: Check INR on , follow up with PCP then. A referral to the [facility] was also completed. I spent more than 35 minutes in the discharge of the patient. /[id number] ANILA/NOHEMI
== END 2018-09-18 10:17 | disposition home or self-care (01) | DRG 134 ==
LOC: FB.ED 16:33 → FB.MS 21:58
PROVIDERS: ADMIT Family Medicine; ATTEND Family Medicine
DX: I26.99 Other pulmonary embolism without acute cor pulmonale (principal); K21.9 Gastro-esophageal reflux disease without esophagitis; Z85.3 Personal history of malignant neoplasm of breast; Z87.891 Personal history of nicotine dependence; Z87.440 Personal history of urinary (tract) infections; Z86.14 Personal history of Methicillin resistant Staphylococcus aureus infection; Z79.01 Long term (current) use of anticoagulants; Z91.018 Allergy to other foods; Z90.10 Acquired absence of unspecified breast and nipple
CPT/HCPCS: 36415; 71045; 71275; 80053; 83735; 84439; 84443; 84484; 85025; 85379; 85610; 85730; 93005; 96374; 99285-25; A9270-GY; J1650; J3490; Q9967